=== PATIENT | female | born 1970 | race Caucasian/White ===

== ENCOUNTER 2019-12-03 10:00 | Outpatient (CLI) | payer MEDICAID, SELFPAY ==
--- NOTE | 2019-12-03 10:08 | CT_ITS ---
WS: [id number] CT NECK WITH CONTRAST HISTORY: CERVICALGIA, ACUTE RECURRENT TONSILLITIS TECHNIQUE: Contiguous 5 mm axial images are performed through the neck with intravenous contrast. Sag ittal and coronal reformats are also submitted. All CT scans at [facility] use at least o ne of these dose optimization techniques: automated exposure control; mA and/or kV adjustment per pat ient size (includes targeted exams where dose is matched to clinical indication); or iterative recons truction. CONTRAST: CONTRAST: Omnipaque 300; 95 mL IV. DLP: 2362.92 mGycm COMPARISON: 05/07/2019 BB is placed over the LEFT neck at the region of concern. Marker corresponds to small adjacent lymph nodes which are mildly hyperemic. These lymph nodes measure 4 mm in maximum diameter but they are sli ghtly hyperemic. Hyperemia is new since 05/07/2019 but there is no increase in size. Nasopharynx, oropharynx, hypopharynx and larynx are unremarkable. No soft tissue masses or abnormal e nhancement. Torus tubarius and fossa of Rosenmuller and parapharyngeal fat are normal. No significant lymphadenopathy is identified. Thyroid gland and salivary glands are normally enhancing with no masses. No osseous abnormalities. Visualized portions of the skull base demonstrate no abnormalities. Orbits and globes are within norm al limits. No soft tissue masses. Visualized paranasal sinuses and mastoid air cells are normal. Lung apices are clear. There is a stable 10 mm RIGHT paratracheal lymph node. CT/CT neck w con* [id number] IMPRESSION: 1. No neck mass or significant adenopathy. 2. Mildly hyperemic lymph nodes lateral to the LEFT submandibular gland are no rmal in size. Mild hyperemia and may represent some mild inflammation. No adeno trae.
[2019-12-03] MEDS: iohexol 300 mg/mL 100 mL Btl IV (10:47)
== END 2019-12-03 10:01 | disposition home or self-care (01) ==
LOC: RADWPI 10:04
PROVIDERS: Family Provider Nurse Practitioner Family; PCP Nurse Practitioner Family; Visit Provider Specialist
DX: M54.2 Cervicalgia (principal); J03.81 Acute recurrent tonsillitis due to other specified organisms; R68.89 Other general symptoms and signs
CPT/HCPCS: 70491; Q9967

== ENCOUNTER → 2019-12-25 09:50 | Outpatient (BNVA) | payer MEDICAID, SELFPAY | PROVIDERS: Family Provider Nurse Practitioner Family; PCP Nurse Practitioner Family; Visit Provider Specialist | DX: G43.711 Chronic migraine without aura, intractable, with status migrainosus (principal); Q87.40 Marfan syndrome, unspecified | CPT/HCPCS: 64615; 96372; J0585; J1885 ==

== ENCOUNTER 2020-01-12 09:02 | Outpatient (CLI) | payer MEDICAID, SELFPAY | END 2020-01-12 09:03 | disposition home or self-care (01) | LOC: RAD 01-13 16:05 | PROVIDERS: Family Provider Nurse Practitioner Family; PCP Nurse Practitioner Family; Visit Provider Specialist | DX: M79.7 Fibromyalgia; Q87.40 Marfan syndrome, unspecified | CPT/HCPCS: 20552; 99214 ==

== ENCOUNTER 2020-02-06 07:30 | Outpatient (CLI) | payer MEDICAID, SELFPAY ==
--- NOTE | 2020-02-06 08:00 | MR_ITS ---
WS: [id number] MRI LUMBAR SPINE NONCONTRAST HISTORY: back pain COMPARISON: None available. TECHNIQUE: Sagittal and axial multisequence imaging is submitted. Mild encroachment upon the ventral thecal sac by osteophytes at C4-5 and C5-6. Normal lumbar alignment with no compression fractures or marrow edema. Disc spaces and vertebral body heights are well-preserved. Conus terminates normally at mid L1. L1-L2: Bilateral nerve root sleeve diverticulum. No stenosis. L2-L3: Bilateral nerve root sleeve diverticulum without stenosis. L3-L4: Very mild annular disc bulging with ligamentum flavum hypertrophy and facet arthritis. No sign ificant stenosis. L4-L5: Mild annular disc bulging and ligamentum flavum hypertrophy. No significant stenosis. L5-S1: Normal. Tarlov cyst posterior to the sacrum. Additional nerve root sleeve diverticula bilaterally at T11-12 a nd T12-L1. MR/MR lumbar spine wo con* [id number] IMPRESSION: 1. No lumbar spine stenosis. 2. Mild degenerative disc disease and ligamentum flavum hypertrophy at L3-4 an d L4-5.
--- NOTE | 2020-02-06 08:45 | USCV_ITS ---
Ivy Pemberton Age: 49 Gender: F : 1970 Exam Date: 02/06/2020 08:57 Ordering Phys: Alyssa Mcintosh MD Technologist: Tiffany Lopez Exam Location: [facility] [place] Indication: Abdominal pain HISTORY: Diameter (cm) AP x Transverse x Length Velocity (cm/s) Waveform Prox Aorta: 2.03 x 2.10 x 107.70 Mid Aorta: 1.69 x 1.63 x 91.10 Distal Aorta: 1.41 x 1.57 x 88.70 Right Iliac Prox: 1.01 x 1.06 x 80.60 Left Iliac Prox: 0.94 x 1.11 x 99.30 Stent Prox Landing x x Aneurysmal Sac Max x x Lt Lat Sac Dim Rt Lat Sac Dim Stent Dist Landing x x Right Iliac Stent x x Left Iliac Stent x x Right Renal Art Left Renal Art FINDINGS: CONCLUSIONS Minimal arteriovascular disease within the abdominal aorta. No evidence of abdominal aortic or bilateral iliac aneurysm. Hiro Chavis MD (Electronically Signed) Final Date: 06 February 2020 09:41 S
== END 2020-02-06 07:31 | disposition home or self-care (01) ==
LOC: RADSHAW 07:31
PROVIDERS: Family Provider Nurse Practitioner Family; PCP Nurse Practitioner Family; Visit Provider Specialist
DX: M54.9 Dorsalgia, unspecified (principal); R10.9 Unspecified abdominal pain; M51.36 Other intervertebral disc degeneration, lumbar region
CPT/HCPCS: 72148; 76706

== ENCOUNTER → 2020-02-26 09:59 | Outpatient (BNVA) | payer MEDICAID, SELFPAY | PROVIDERS: Family Provider Nurse Practitioner Family; PCP Nurse Practitioner Family; Visit Provider Specialist | DX: M25.512 Pain in left shoulder (principal) | CPT/HCPCS: 73030 ==

== ENCOUNTER 2020-03-08 08:45 | Outpatient (CLI) | payer MEDICAID, SELFPAY ==
--- NOTE | 2020-03-08 08:45 | MR_ITS ---
WS: [id number] MRI LEFT SHOULDER HISTORY: shoulder pain COMPARISON: Shoulder radiograph 02/26/2020. TECHNIQUE: Multiplanar sequences of the shoulder joint are submitted. Mild hypertrophic changes at the AC joint. There is fluid along the AC ligament with small osteophyte s. Very tiny amount of fluid in the subdeltoid bursa. Slight downward sloping of the acromion. Downwa rd sloping is causing a very slight narrowing of the acromial humeral distance. Very small insertion site tear of the infraspinatus tendon. Tear measures 3 mm in diameter. Otherwise tendons of the rotator cuff are intact. No significant tendinopathy. No muscle atrophy or fatty repl acement. The humeral head is very slightly high riding. No os acromion. Normal position of the biceps tendon. Increased signal extending into the anterior superior labrum. Abnormal signal is irregular and suspic ious for an anterior superior labral tear. MR/MR shoulder LT wo con* [id number] IMPRESSION: 1. Very small insertion site tear infraspinatus tendon. 2. Mild AC joint arthritis. 3. Anterior superior labral tear.
== END 2020-03-08 08:46 | disposition home or self-care (01) ==
LOC: RADSHAW 08:50
PROVIDERS: Family Provider Nurse Practitioner Family; PCP Nurse Practitioner Family; Visit Provider Specialist
DX: S46.912A Strain of unspecified muscle, fascia and tendon at shoulder and upper arm level, left arm, initial encounter (principal); S43.432A Superior glenoid labrum lesion of left shoulder, initial encounter; X58.XXXA Exposure to other specified factors, initial encounter; M13.812 Other specified arthritis, left shoulder
CPT/HCPCS: 73221

== ENCOUNTER → 2020-03-18 10:16 | Outpatient (BNVA) | payer MEDICAID, SELFPAY | PROVIDERS: Family Provider Nurse Practitioner Family; PCP Nurse Practitioner Family; Visit Provider Specialist | DX: G43.711 Chronic migraine without aura, intractable, with status migrainosus (principal); M79.7 Fibromyalgia | CPT/HCPCS: 64615; 99213; J0585 ==

== ENCOUNTER → 2020-06-17 09:06 | Outpatient (BNVA) | payer MEDICAID, SELFPAY | PROVIDERS: Family Provider Nurse Practitioner Family; PCP Nurse Practitioner Family; Visit Provider Specialist | DX: G43.711 Chronic migraine without aura, intractable, with status migrainosus (principal); S06.0X9A Concussion with loss of consciousness of unspecified duration, initial encounter; Q87.40 Marfan syndrome, unspecified | CPT/HCPCS: 64615; 99213; J0585 ==

== ENCOUNTER → 2020-06-23 13:39 | Outpatient (BNVA) | payer MEDICAID, SELFPAY | PROVIDERS: Family Provider Nurse Practitioner Family; PCP Nurse Practitioner Family; Visit Provider Specialist | DX: M25.562 Pain in left knee (principal); M17.11 Unilateral primary osteoarthritis, right knee; M47.812 Spondylosis without myelopathy or radiculopathy, cervical region | CPT/HCPCS: 73560; 73565 ==

== ENCOUNTER 2020-06-24 14:14 | Outpatient (CLI) | payer MEDICAID, SELFPAY ==
--- NOTE | 2020-06-24 14:49 | XR_ITS ---
WS: [id number] EXAM: XR cervical spine 4-5V [id number] DATE OF EXAMINATION: 06/24/2020, 1500 hours COMPARISON: Cervical spine examination from 11/21/2018 HISTORY: 49 years old with migraine headaches. FINDINGS: Cervical vertebral bodies are of normal height. The pre dens space and prevertebral soft tissue plane are normal. There is reversal of cervical lordosis. Advanced degenerative spondylosis changes are se en C4-5, C5-6 and C6-7 levels. Flexion-extension views show no evidence of instability. Slight facet arthritis changes most prominent C6-7 level. C1-C2 alignment is normal. No fracture or subluxation ma lalignment is noted. No soft tissue abnormality is demonstrated. XR/XR cervical spine 4-5V [id number] IMPRESSION: Findings of arthritis as described. No acute bony abnormality. No instability w ith flexion and extension.
== END 2020-06-24 14:15 | disposition home or self-care (01) ==
LOC: RADWPI 14:16
PROVIDERS: PCP Nurse Practitioner Family; Visit Provider Specialist
DX: G43.711 Chronic migraine without aura, intractable, with status migrainosus (principal); M47.812 Spondylosis without myelopathy or radiculopathy, cervical region
CPT/HCPCS: 72050

== ENCOUNTER 2020-07-06 10:37 | Outpatient (CLI) | payer MEDICAID, SELFPAY ==
--- NOTE | 2020-07-06 11:00 | MR_ITS ---
WS: [id number] MRI LEFT KNEE HISTORY: M25.562 Pain in left knee COMPARISON: 10/16/2016 Anterior cruciate ligament: Intact. Posterior cruciate ligament: Slight buckling but the ligament is intact. Medial collateral ligament: Intact. Posterior lateral corner structures: Intact. Medial menisci: Intact. Normal signal, size and shape. Lateral meniscus: Intact. Normal signal, size and shape. Extensor mechanism: Distal quadriceps tendon and patellar tendons are intact. Fluid and soft tissue: There is a small amount of fluid in the suprapatellar bursa. No significant nano int effusion. No Gómez's cyst. Osseous and articular structures: Patellofemoral compartment: Bilateral chondromalacia patella. Similar to the prior examination with n o progression. No marrow edema. Medial compartment: Mild narrowing and loss of the joint space. No significant cartilage loss. Lateral compartment: Mild narrowing of the lateral compartment. Small amount of superficial irregular ity involving the cartilage on both sides of the joint space. No underlying marrow edema. Similar to the prior study. MR/MR knee LT wo con* [id number] IMPRESSION: 1. Chondromalacia patella similar to the prior study. 2. No meniscal tears. 3. No marrow edema. 4. Mild chondromalacia lateral compartment.
== END 2020-07-06 10:38 | disposition home or self-care (01) ==
LOC: RADSHAW 10:40
PROVIDERS: PCP Nurse Practitioner Family; Visit Provider Specialist
DX: M25.562 Pain in left knee (principal); M22.42 Chondromalacia patellae, left knee
CPT/HCPCS: 73721

== ENCOUNTER → 2020-07-13 13:58 | Outpatient (BNVA) | payer MEDICAID, SELFPAY | PROVIDERS: PCP Nurse Practitioner Family; Visit Provider Podiatrist Foot & Ankle Surgery | DX: M79.672 Pain in left foot (principal) | CPT/HCPCS: 73630 ==

== ENCOUNTER 2020-07-27 15:09 | Outpatient (CLI) | payer MEDICAID, SELFPAY ==
--- NOTE | 2020-07-27 16:00 | MR_ITS ---
WS: [id number] MRI LEFT ANKLE NONCONTRAST TECHNIQUE: Sagittal proton density, sagittal STIR, axial proton density, axial T1, axial T2 fat sat, coronal proton density, coronal proton density fat sat, coronal T2 fat sat. CLINICAL INFORMATION: left ankle injury COMPARISON: None. FINDINGS: Normal anatomic alignment. Ankle mortise is normal in appearance. No acute fractures. Normal medial a nd lateral malleolus. Normal talar dome. Normal calcaneus. Palpable marker over the lateral aspect of the hindfoot. Normal underlying soft tissues. Palpable mar ker over the peroneal tendons which appear normal. Normal peroneal longus and brevis. Distal Achilles is normal in appearance. Normal navicular. Normal tarsal bones. Proximal metatarsals are normal in appearance. Normal plantar fascia and aponeurosis. Extensor and flexor compartment tend ons are normal in appearance. MR/MR ankle LT wo con* [id number] IMPRESSION: 1. Normal anatomic alignment. No acute fractures. 2. Normal ankle mortise. Normal medial and lateral malleolus. 3. Marker overlying the peroneal tendons appear normal. Normal peroneal longus and brevis. 4. Normal extensor and flexor compartment tendons. 5. No acute ankle findings.
== END 2020-07-27 15:10 | disposition home or self-care (01) ==
LOC: RADSHAW 15:14
PROVIDERS: PCP Nurse Practitioner Family; Visit Provider Podiatrist Foot & Ankle Surgery
DX: S99.912A Unspecified injury of left ankle, initial encounter (principal); X58.XXXA Exposure to other specified factors, initial encounter
CPT/HCPCS: 73721

== ENCOUNTER → 2020-09-09 09:28 | Outpatient (BNVA) | payer MEDICAID, SELFPAY | PROVIDERS: PCP Nurse Practitioner Family; Visit Provider Specialist | DX: G43.711 Chronic migraine without aura, intractable, with status migrainosus (principal); G24.3 Spasmodic torticollis; Q87.40 Marfan syndrome, unspecified; M47.812 Spondylosis without myelopathy or radiculopathy, cervical region | CPT/HCPCS: 64615; 99213; J0585 ==

== ENCOUNTER → 2020-10-07 09:04 | Outpatient (BNVA) | payer MEDICAID, SELFPAY | PROVIDERS: PCP Nurse Practitioner Family; Visit Provider Podiatrist Foot & Ankle Surgery | DX: M79.672 Pain in left foot (principal) | CPT/HCPCS: 73630 ==

== ENCOUNTER 2020-10-20 13:09 | Outpatient (CLI) | payer MEDICAID, SELFPAY ==
--- NOTE | 2020-10-20 13:24 | MR_ITS ---
WS: [id number] MRI BRAIN WITH HIGH-RESOLUTION IMAGING THROUGH THE INTERNAL AUDITORY CANALS WITHOUT AND WITH CONTRAST HISTORY: DIZZINESS AND GIDDINESS COMPARISON: 08/21/2019 TECHNIQUE: Multiplanar, multisequence imaging is performed through the brain. Additional 3 mm imaging performed in multiple planes through the internal auditory canal. Postcontrast imaging with 16 ml's of Prohance. No acute intracranial hemorrhage, midline shift, edema or mass effect. New area of increased T2 and FLAIR signal adjacent to the corpus callosum of the RIGHT splenium. This was not present on the prior study. Otherwise no signal abnormalities. No significant volume loss or atrophy. Cerebellopontine angles are negative. Ventricles and extra-axial spaces are normal. No inferior displacement of cerebellar tonsils. Clivus and pituitary gland are normal. Internal and external auditory canals: Unremarkable. Cranial nerves VII and VIII complexes: Unremarkable. No enhancement or mass. Cerebellopontine angles: Normal. Paranasal sinuses: Normal. Mastoid air cells: Normal. Calvarium and scalp: Normal. Visualized [place] and dural venous sinuses demonstrate no abnormality. MR/MR iac's wo/w con* [id number] IMPRESSION: 1. No abnormality at the cerebellopontine angles or along the internal medicine hospitalist y canals. 2. New focal area of increased signal adjacent to the splenium of the RIGHT co rpus callosum. Differential includes microvascular ischemic disease and demyeli nating disease. New since the prior study with no enhancement.
== END 2020-10-20 13:10 | disposition home or self-care (01) ==
LOC: RADSHAW 13:13
PROVIDERS: PCP Nurse Practitioner Family; Visit Provider Specialist
DX: R42 Dizziness and giddiness (principal); I67.82 Cerebral ischemia
CPT/HCPCS: 70553; A9579

== ENCOUNTER → 2020-12-02 09:27 | Outpatient (BNVA) | payer MEDICAID, SELFPAY | PROVIDERS: PCP Nurse Practitioner Family; Visit Provider Specialist | DX: G43.711 Chronic migraine without aura, intractable, with status migrainosus (principal); R93.0 Abnormal findings on diagnostic imaging of skull and head, not elsewhere classified; G37.9 Demyelinating disease of central nervous system, unspecified; M79.7 Fibromyalgia; Q87.40 Marfan syndrome, unspecified; G24.3 Spasmodic torticollis | CPT/HCPCS: 64615; 99214; J0585 ==

== ENCOUNTER → 2020-12-28 10:08 | Outpatient (BNVA) | payer MEDICAID, SELFPAY | PROVIDERS: PCP Nurse Practitioner Family; Referring Provider Nurse Practitioner Family; Visit Provider Specialist | DX: R20.0 Anesthesia of skin (principal); R20.2 Paresthesia of skin; M47.892 Other spondylosis, cervical region | CPT/HCPCS: 95910 ==

== ENCOUNTER 2021-01-12 12:20 | Outpatient (CLI) | payer MEDICAID, SELFPAY ==
--- NOTE | 2021-01-12 12:48 | MR_ITS ---
WS: [id number] MRI HEAD WITH CONTRAST TECHNIQUE: Sagittal T1, T2 axial, T2 axial FLAIR, axial susceptibility weighted imaging, axial diffus ion weighted images, and coronal T2 images were obtained. Pre and post-T1 axial and post T1 coronal i mages. ADC and FSPGR images. CLINICAL INFORMATION: R93.0 - Abnormal findings on diagnostic imaging of skull and head, not elsewher e classified COMPARISON: MRI October 20, 2020 FINDINGS: No evidence of restricted diffusion to suggest acute ischemia. Ventricular system and basal cisterns are patent. Previously described T2 hyperintense lesion along the splenium of the right corpus callos um has resolved in the interim. No new lesions. Corpus callosum is normal in appearance. Normal posterior fossa. Normal vascular flow voids at the skull base. No extra-axial fluid collection s. No evidence of mass or mass effect. Paranasal sinuses and mastoid air cells well aerated. No hemos iderin on susceptibly weighted images. Normal optic chiasm and pituitary infundibulum. Temporal lobes and hippocampal formations are normal in appearance. No abnormal gadolinium enhancement. Normal dural venous sinuses. MR/MR head wo/w con [id number] IMPRESSION: 1. No evidence of restricted diffusion to suggest acute ischemia. 2. Previously described lesion along the right splenium corpus callosum has re solved in the interim. No new lesions. 3. No abnormal gadolinium enhancement. 4. Normal corpus callosum. 5. No other suspicious findings.
[2021-01-12] MEDS: gadobenate dimeglumine 20 mL vial 16 ML IV (13:40)
== END 2021-01-12 12:21 | disposition home or self-care (01) ==
LOC: RADSHAW 12:21
PROVIDERS: PCP Nurse Practitioner Family; Visit Provider Specialist
DX: R93.0 Abnormal findings on diagnostic imaging of skull and head, not elsewhere classified (principal)
CPT/HCPCS: 70553; A9577

== ENCOUNTER → 2021-01-31 14:32 | Outpatient (BNVA) | payer MEDICAID, SELFPAY | PROVIDERS: PCP Nurse Practitioner Family; Visit Provider Podiatrist Foot & Ankle Surgery | DX: M79.672 Pain in left foot (principal); M79.673 Pain in unspecified foot | CPT/HCPCS: 73630 ==

== ENCOUNTER 2021-02-17 07:47 | Outpatient (CLI) | payer MEDICAID, SELFPAY ==
--- NOTE | 2021-02-17 07:50 | MR_ITS ---
WS: [id number] MRI LEFT FOOT without CONTRAST. COMPARISON: Radiograph 01/31/2021 Multiplanar, multisequence imaging is performed without contrast. History: Trauma. Possible occult fracture. No marrow edema to suggest an acute fracture. No significant amount of soft tissue edema. There is a very small focal area of increased T2 signal in the soft tissues lateral to the fifth metatarsal. No hemorrhage. No significant degenerative change. Normal alignment at the tarsometatarsal junction. No increase fluid in the extensor or flexion tendons. MR/MR foot LT wo con* [id number] IMPRESSION: 1. No LEFT foot fracture or marrow edema. 2. Very small area of increased signal in the soft tissues lateral to the prox imal fifth metatarsal may be the area of soft tissue injury.
== END 2021-02-17 07:48 | disposition home or self-care (01) ==
LOC: RADSHAW 07:49
PROVIDERS: PCP Nurse Practitioner Family; Visit Provider Podiatrist Foot & Ankle Surgery
DX: S99.922A Unspecified injury of left foot, initial encounter (principal); X58.XXXA Exposure to other specified factors, initial encounter
CPT/HCPCS: 73718

== ENCOUNTER → 2021-03-03 10:03 | Outpatient (BNVA) | payer MEDICAID, SELFPAY | PROVIDERS: PCP Nurse Practitioner Family; Visit Provider Specialist | DX: G43.711 Chronic migraine without aura, intractable, with status migrainosus (principal); G37.9 Demyelinating disease of central nervous system, unspecified; M79.7 Fibromyalgia; Q87.40 Marfan syndrome, unspecified; G24.3 Spasmodic torticollis | CPT/HCPCS: 64615; 99212; J0585 ==

== ENCOUNTER → 2021-04-28 09:25 | Outpatient (BNVA) | payer MEDICAID, SELFPAY | PROVIDERS: PCP Nurse Practitioner Family; Visit Provider Specialist | DX: M25.569 Pain in unspecified knee (principal) | CPT/HCPCS: 73560; 73565 ==

== ENCOUNTER → 2021-05-26 10:30 | Outpatient (BNVA) | payer MEDICAID, SELFPAY | PROVIDERS: Visit Provider Specialist | DX: G43.711 Chronic migraine without aura, intractable, with status migrainosus (principal); Q87.40 Marfan syndrome, unspecified; M47.812 Spondylosis without myelopathy or radiculopathy, cervical region; G37.9 Demyelinating disease of central nervous system, unspecified | CPT/HCPCS: 64615; 99214; J0585 ==

== ENCOUNTER → 2021-06-08 09:35 | Outpatient (BNVA) | payer MEDICAID, SELFPAY | PROVIDERS: Visit Provider Specialist | DX: M75.82 Other shoulder lesions, left shoulder (principal); M19.012 Primary osteoarthritis, left shoulder | CPT/HCPCS: 73030 ==

== ENCOUNTER 2021-06-14 13:00 | Outpatient (CLI) | payer MEDICAID, SELFPAY ==
--- NOTE | 2021-06-14 13:06 | MR_ITS ---
WS: [id number] MRI CERVICAL SPINE NONCONTRAST HISTORY: MARFAN'S SYNDROME COMPARISON: 02/14/2017 Technique: Multiplanar, multisequence noncontrast imaging of the cervical spine. Very slight straightening of the upper cervical vertebrae. No acute fractures or marrow edema. 3 mm r etrolisthesis of C4 and C5. Disc spaces are narrowed and desiccated from C3-4 to C6-7. No inferior displacement of cerebellar ton sils. Signal within the cord is normal. No syrinx. Craniocervical junction, C1 and C2 relationship, odontoid process and soft tissues are normal. C2-C3: Normal. C3-C4: Mild annular disc bulge with a central disc protrusion. No high-grade stenosis. C4-C5: Diffuse osteophytic ridging and annular disc bulging with a central protrusion. Mild deformity of the ventral cervical cord. Mild central stenosis. C5-C6: Diffuse osteophytic ridging and a central disc protrusion. Mild facet joint arthritis. Mild ce ntral stenosis. C6-C7: Mild annular disc bulging and osteophytic ridging. Greater osteophyte burden in the LEFT dalia en with mild LEFT foraminal narrowing and mild LEFT facet arthritis. C7-T1: No stenosis. Paraspinal soft tissue are normal. MR/MR cervical spin wo con* [id number] IMPRESSION: 1. No high-grade central or foraminal stenosis. 2. Mild central stenosis with a central disc protrusions at C4-5 and C5-6. 3. Osteophytic ridging with mild LEFT foraminal stenosis at C6-7. Similar to horace hernandez prior study. 4. Advanced degenerative disc disease and osteophytosis, most significant at C 4-5 and C5-6.
== END 2021-06-14 13:01 | disposition home or self-care (01) ==
PROVIDERS: Visit Provider Specialist
DX: Q87.40 Marfan syndrome, unspecified (principal); M47.812 Spondylosis without myelopathy or radiculopathy, cervical region; M50.221 Other cervical disc displacement at C4-C5 level; M25.78 Osteophyte, vertebrae
CPT/HCPCS: 72141

== ENCOUNTER → 2021-06-24 09:41 | Outpatient (BNVA) | payer MEDICAID, SELFPAY | PROVIDERS: PCP Nurse Practitioner Family; Referring Provider Specialist; Visit Provider Anesthesiology Pain Medicine | DX: G89.29 Other chronic pain (principal); M47.812 Spondylosis without myelopathy or radiculopathy, cervical region; M48.02 Spinal stenosis, cervical region; M54.12 Radiculopathy, cervical region; M17.12 Unilateral primary osteoarthritis, left knee; Q87.40 Marfan syndrome, unspecified; Z79.891 Long term (current) use of opiate analgesic | CPT/HCPCS: 99205 ==

== ENCOUNTER → 2021-07-01 12:58 | Outpatient (BNVA) | payer MEDICAID, SELFPAY | PROVIDERS: PCP Nurse Practitioner Family; Visit Provider Anesthesiology Pain Medicine | DX: M54.12 Radiculopathy, cervical region (principal) | CPT/HCPCS: 62321; J1100 ==

== ENCOUNTER → 2021-07-21 09:07 | Outpatient (BNVA) | payer MEDICAID, SELFPAY | PROVIDERS: PCP Nurse Practitioner Family; Visit Provider Anesthesiology Pain Medicine | DX: M47.812 Spondylosis without myelopathy or radiculopathy, cervical region (principal); M48.02 Spinal stenosis, cervical region; M54.12 Radiculopathy, cervical region; Q87.40 Marfan syndrome, unspecified; M17.12 Unilateral primary osteoarthritis, left knee; M79.601 Pain in right arm; M79.602 Pain in left arm; R51.9 Headache, unspecified | CPT/HCPCS: 99214 ==

== ENCOUNTER → 2021-08-01 14:18 | Outpatient (BNVA) | payer MEDICAID, SELFPAY | PROVIDERS: PCP Nurse Practitioner Family; Visit Provider Anesthesiology Pain Medicine | DX: M47.812 Spondylosis without myelopathy or radiculopathy, cervical region (principal) | CPT/HCPCS: 64490; 64491; 64492; J3490 ==

== ENCOUNTER → 2021-08-15 10:27 | Outpatient (BNVA) | payer MEDICAID, SELFPAY | PROVIDERS: PCP Nurse Practitioner Family; Visit Provider Anesthesiology Pain Medicine | DX: M47.812 Spondylosis without myelopathy or radiculopathy, cervical region (principal); M48.02 Spinal stenosis, cervical region; M54.12 Radiculopathy, cervical region; M53.2X1 Spinal instabilities, occipito-atlanto-axial region; Q87.40 Marfan syndrome, unspecified; M17.12 Unilateral primary osteoarthritis, left knee; M79.601 Pain in right arm; M79.602 Pain in left arm; G43.711 Chronic migraine without aura, intractable, with status migrainosus | CPT/HCPCS: 99214 ==

== ENCOUNTER → 2021-08-31 13:56 | Outpatient (BNVA) | payer MEDICAID, SELFPAY | PROVIDERS: PCP Nurse Practitioner Family; Visit Provider Anesthesiology Pain Medicine | DX: Z01.812 Encounter for preprocedural laboratory examination (principal); E11.9 Type 2 diabetes mellitus without complications; M54.16 Radiculopathy, lumbar region | CPT/HCPCS: 36416; 64483; 64484; 82962; J1100; J3490 ==

== ENCOUNTER → 2021-10-04 12:50 | Outpatient (BNVA) | payer MEDICAID, SELFPAY | PROVIDERS: PCP Nurse Practitioner Family; Visit Provider Anesthesiology Pain Medicine | DX: Z01.812 Encounter for preprocedural laboratory examination (principal); E11.9 Type 2 diabetes mellitus without complications; M54.16 Radiculopathy, lumbar region | CPT/HCPCS: 36416; 64483; 64484; 82962; J1100; J3490 ==

== ENCOUNTER 2021-10-14 14:22 | Outpatient (CLI) | payer OTHER, MEDICAID, SELFPAY | END 2021-10-14 14:23 | disposition home or self-care (01) | LOC: SPT 14:23 | PROVIDERS: PCP Nurse Practitioner Family; Visit Provider Podiatrist Foot & Ankle Surgery | DX: Z46.89 Encounter for fitting and adjustment of other specified devices (principal); T14.8XXA Other injury of unspecified body region, initial encounter; X58.XXXA Exposure to other specified factors, initial encounter | CPT/HCPCS: 97760; L4361 ==

== ENCOUNTER 2021-10-20 13:22 | Outpatient (CLI) | payer OTHER, SELFPAY ==
--- NOTE | 2021-10-20 13:29 | CT_ITS ---
WS: [id number] CT RIGHT FOOT, noncontrast. HISTORY: right foot injury Technique: All CT scans at [facility] use at least one of these dose optimization techniques: automated exposure control; mA and/or kV adjustment per patient size (includes targeted exams where dose is matched to clinical indication); or iterative reconstruction. DLP: 168.89 mGy.cm COMPARISON: RIGHT foot radiograph 10/12/2021 Nondisplaced intra-articular fracture through the plantar surface of the proximal first metatarsal. A dditional nondisplaced fractures through the proximal second, third and fourth metatarsals. These fra ctures involve the metaphyses but do not extend intra-articular. No definite fracture involving the p roximal fifth metatarsal. There is slight cortical irregularity involving the proximal fifth metatars al but no definite fracture. No significant widening of the Lisfranc joint but this would be better e valuated radiographically. Moderate amount of soft tissue edema around the metatarsals. Distal tibia and fibula are intact. Normal calcaneus and talus. No definite tarsal fractures are jessi lignment. CT/CT foot RT wo con* [id number] IMPRESSION: 1. Proximal first metatarsal intra-articular fracture without displacement. 2. Nondisplaced transverse fractures second, third and fourth proximal metatar sals with no intra-articular extension. No additional fractures are identified.
== END 2021-10-20 13:23 | disposition home or self-care (01) ==
LOC: RAD 13:24
PROVIDERS: PCP Nurse Practitioner Family; Visit Provider Podiatrist Foot & Ankle Surgery
DX: S92.324A Nondisplaced fracture of second metatarsal bone, right foot, initial encounter for closed fracture (principal); S92.334A Nondisplaced fracture of third metatarsal bone, right foot, initial encounter for closed fracture; S92.344A Nondisplaced fracture of fourth metatarsal bone, right foot, initial encounter for closed fracture; X58.XXXA Exposure to other specified factors, initial encounter
CPT/HCPCS: 73700

== ENCOUNTER → 2021-11-07 14:36 | Outpatient (BNVA) | payer OTHER, SELFPAY | PROVIDERS: PCP Nurse Practitioner Family; Visit Provider Podiatrist Foot & Ankle Surgery | DX: S99.921A Unspecified injury of right foot, initial encounter (principal); X58.XXXA Exposure to other specified factors, initial encounter | CPT/HCPCS: 73630 ==

== ENCOUNTER → 2021-11-14 15:07 | Outpatient (BNVA) | payer OTHER, SELFPAY | PROVIDERS: PCP Nurse Practitioner Family; Visit Provider Podiatrist Foot & Ankle Surgery | DX: S92.344D Nondisplaced fracture of fourth metatarsal bone, right foot, subsequent encounter for fracture with routine healing (principal); S92.334D Nondisplaced fracture of third metatarsal bone, right foot, subsequent encounter for fracture with routine healing; S92.324D Nondisplaced fracture of second metatarsal bone, right foot, subsequent encounter for fracture with routine healing; S92.314D Nondisplaced fracture of first metatarsal bone, right foot, subsequent encounter for fracture with routine healing; X58.XXXD Exposure to other specified factors, subsequent encounter | CPT/HCPCS: 73630 ==

== ENCOUNTER → 2021-12-01 09:59 | Outpatient (BNVA) | payer OTHER, SELFPAY | PROVIDERS: PCP Nurse Practitioner Family; Visit Provider Podiatrist Foot & Ankle Surgery | DX: S92.344D Nondisplaced fracture of fourth metatarsal bone, right foot, subsequent encounter for fracture with routine healing (principal); S92.334D Nondisplaced fracture of third metatarsal bone, right foot, subsequent encounter for fracture with routine healing; S92.324D Nondisplaced fracture of second metatarsal bone, right foot, subsequent encounter for fracture with routine healing; S92.314D Nondisplaced fracture of first metatarsal bone, right foot, subsequent encounter for fracture with routine healing; X58.XXXD Exposure to other specified factors, subsequent encounter | CPT/HCPCS: 73630 ==

== ENCOUNTER → 2021-12-15 14:09 | Outpatient (BNVA) | payer OTHER, SELFPAY | PROVIDERS: PCP Nurse Practitioner Family; Visit Provider Podiatrist Foot & Ankle Surgery | DX: S92.344D Nondisplaced fracture of fourth metatarsal bone, right foot, subsequent encounter for fracture with routine healing (principal); S92.314D Nondisplaced fracture of first metatarsal bone, right foot, subsequent encounter for fracture with routine healing; S92.324D Nondisplaced fracture of second metatarsal bone, right foot, subsequent encounter for fracture with routine healing; S92.334D Nondisplaced fracture of third metatarsal bone, right foot, subsequent encounter for fracture with routine healing; V89.2XXD Person injured in unspecified motor-vehicle accident, traffic, subsequent encounter | CPT/HCPCS: 73630 ==

== ENCOUNTER → 2022-01-05 13:08 | Outpatient (BNVA) | payer OTHER, SELFPAY | PROVIDERS: PCP Nurse Practitioner Family; Visit Provider Podiatrist Foot & Ankle Surgery | DX: S92.344D Nondisplaced fracture of fourth metatarsal bone, right foot, subsequent encounter for fracture with routine healing (principal); S92.334D Nondisplaced fracture of third metatarsal bone, right foot, subsequent encounter for fracture with routine healing; S92.324D Nondisplaced fracture of second metatarsal bone, right foot, subsequent encounter for fracture with routine healing; S92.314D Nondisplaced fracture of first metatarsal bone, right foot, subsequent encounter for fracture with routine healing; X58.XXXD Exposure to other specified factors, subsequent encounter | CPT/HCPCS: 73630 ==

== ENCOUNTER 2022-01-19 15:47 | Outpatient (CLI) | payer OTHER, SELFPAY ==
--- NOTE | 2022-01-19 16:00 | MR_ITS ---
WS: [id number] INDICATION: Metatarsal fracture TECHNIQUE: MRI of the RIGHT foot without gadolinium enhancement. Coronal PD coronal T2 fat sat axial T2 axial PD axial T1 and sagittal T1 sagittal STIR FINDINGS: Nondisplaced fractures involving the base of the 2nd 3rd and 4th metatarsals. Nondisplaced fracture through the head and neck of the 5th metatarsal. 5th metatarsal base is normal. Nondisplaced slightly comminuted fracture involving the base of the 1st metatarsal with intra-articular extension . Evidence of healing in the above-described fractures with only minimal residual edema. Degenerative edema involving the talus. Small amount of edema in the neck of the talus with slight co rtical irregularity likely represents additional nondisplaced healing fracture versus contusion. Achi lles enthesophyte. Distal Achilles is normal. Normal peroneal tendon sheath. Normal peroneal longus a nd brevis. MR/MR foot RT wo con* [id number] IMPRESSION: 1. Healing nondisplaced fractures involving the 1st through 4th metatarsals wi th minimal residual edema. Healing nondisplaced fracture involving the head and neck of the 5th metatarsal. 2. Additional suspected healing fracture or contusion involving the neck of th e talus with mild residual edema. Slight cortical irregularity in this area.
== END 2022-01-19 15:48 | disposition home or self-care (01) ==
LOC: RAD 15:50
PROVIDERS: PCP Nurse Practitioner Family; Visit Provider Podiatrist Foot & Ankle Surgery
DX: S92.314A Nondisplaced fracture of first metatarsal bone, right foot, initial encounter for closed fracture (principal); S92.324A Nondisplaced fracture of second metatarsal bone, right foot, initial encounter for closed fracture; S92.334A Nondisplaced fracture of third metatarsal bone, right foot, initial encounter for closed fracture; S92.344A Nondisplaced fracture of fourth metatarsal bone, right foot, initial encounter for closed fracture; V89.2XXA Person injured in unspecified motor-vehicle accident, traffic, initial encounter
CPT/HCPCS: 73718

== ENCOUNTER → 2022-01-31 09:31 | Outpatient (BNVA) | payer OTHER, SELFPAY | PROVIDERS: PCP Nurse Practitioner Family; Visit Provider Podiatrist Foot & Ankle Surgery | DX: S92.311D Displaced fracture of first metatarsal bone, right foot, subsequent encounter for fracture with routine healing (principal); S92.321D Displaced fracture of second metatarsal bone, right foot, subsequent encounter for fracture with routine healing; S92.331D Displaced fracture of third metatarsal bone, right foot, subsequent encounter for fracture with routine healing; S92.341D Displaced fracture of fourth metatarsal bone, right foot, subsequent encounter for fracture with routine healing; X58.XXXD Exposure to other specified factors, subsequent encounter | CPT/HCPCS: 73630 ==

== ENCOUNTER → 2022-02-23 10:09 | Outpatient (BNVA) | payer MEDICAID, SELFPAY | PROVIDERS: PCP Nurse Practitioner Family; Visit Provider Specialist | DX: Z71.89 Other specified counseling (principal); M75.82 Other shoulder lesions, left shoulder | CPT/HCPCS: 20610; J1100; J2795; J3301 ==

== ENCOUNTER → 2022-03-02 11:15 | Outpatient (BNVA) | payer MEDICAID, SELFPAY | PROVIDERS: PCP Nurse Practitioner Family; Visit Provider Specialist | DX: M17.12 Unilateral primary osteoarthritis, left knee (principal); Z71.89 Other specified counseling | CPT/HCPCS: 20610; J1100; J2795; J3301 ==

== ENCOUNTER → 2022-03-07 14:10 | Outpatient (BNVA) | payer MEDICAID, SELFPAY | PROVIDERS: PCP Nurse Practitioner Family; Visit Provider Podiatrist Foot & Ankle Surgery | DX: E11.42 Type 2 diabetes mellitus with diabetic polyneuropathy (principal); S92.344D Nondisplaced fracture of fourth metatarsal bone, right foot, subsequent encounter for fracture with routine healing; S92.334D Nondisplaced fracture of third metatarsal bone, right foot, subsequent encounter for fracture with routine healing; S92.324D Nondisplaced fracture of second metatarsal bone, right foot, subsequent encounter for fracture with routine healing; S92.314D Nondisplaced fracture of first metatarsal bone, right foot, subsequent encounter for fracture with routine healing; V89.2XXD Person injured in unspecified motor-vehicle accident, traffic, subsequent encounter | CPT/HCPCS: 73630; 99214 ==

== ENCOUNTER → 2022-04-13 10:45 | Outpatient (BNVA) | payer MEDICAID, SELFPAY | PROVIDERS: PCP Nurse Practitioner Family; Visit Provider Podiatrist Foot & Ankle Surgery | DX: S92.344D Nondisplaced fracture of fourth metatarsal bone, right foot, subsequent encounter for fracture with routine healing (principal); S92.334D Nondisplaced fracture of third metatarsal bone, right foot, subsequent encounter for fracture with routine healing; S92.324D Nondisplaced fracture of second metatarsal bone, right foot, subsequent encounter for fracture with routine healing; S92.314D Nondisplaced fracture of first metatarsal bone, right foot, subsequent encounter for fracture with routine healing; V89.2XXD Person injured in unspecified motor-vehicle accident, traffic, subsequent encounter; Z71.89 Other specified counseling; E11.42 Type 2 diabetes mellitus with diabetic polyneuropathy; M79.671 Pain in right foot | CPT/HCPCS: 73630; 99213; 99214 ==

== ENCOUNTER → 2022-05-30 13:06 | Outpatient (BNVA) | payer MEDICAID, SELFPAY | PROVIDERS: PCP Nurse Practitioner Family; Visit Provider Podiatrist Foot & Ankle Surgery | DX: E11.42 Type 2 diabetes mellitus with diabetic polyneuropathy (principal); M79.671 Pain in right foot; M79.672 Pain in left foot; Z71.89 Other specified counseling; M77.42 Metatarsalgia, left foot; M77.41 Metatarsalgia, right foot; S92.344D Nondisplaced fracture of fourth metatarsal bone, right foot, subsequent encounter for fracture with routine healing; S92.334D Nondisplaced fracture of third metatarsal bone, right foot, subsequent encounter for fracture with routine healing; S92.324D Nondisplaced fracture of second metatarsal bone, right foot, subsequent encounter for fracture with routine healing; S92.314D Nondisplaced fracture of first metatarsal bone, right foot, subsequent encounter for fracture with routine healing; V89.2XXD Person injured in unspecified motor-vehicle accident, traffic, subsequent encounter | CPT/HCPCS: 73630; 99214 ==

== ENCOUNTER → 2022-06-15 10:11 | Outpatient (BNVA) | payer MEDICAID, SELFPAY | PROVIDERS: PCP Nurse Practitioner Family; Visit Provider Specialist | DX: M17.12 Unilateral primary osteoarthritis, left knee (principal); Z71.89 Other specified counseling | CPT/HCPCS: 20610; J1100; J2795; J3301 ==

== ENCOUNTER → 2022-07-13 10:37 | Outpatient (BNVA) | payer MEDICAID, SELFPAY | PROVIDERS: PCP Nurse Practitioner Family; Visit Provider Specialist | DX: M75.82 Other shoulder lesions, left shoulder (principal); Z71.89 Other specified counseling | CPT/HCPCS: 20610; J1100; J2795; J3301 ==

== ENCOUNTER 2022-07-14 10:54 | Outpatient (CLI) | payer MEDICAID, SELFPAY ==
--- NOTE | 2022-07-14 11:00 | US_ITS ---
WS: [id number] INDICATION: Huitron's neuroma TECHNIQUE: Ultrasound soft tissue area of concern bilateral plantar feet. FINDINGS: Ultrasound soft tissue LEFT foot along the plantar surface. History of metatarsal fractures recently. Ultrasound bilateral plantar feet. LEFT: Solid hypoechoic lesions suspicious for Huitron's neuroma between the 3rd and 4th distal metatar sals near the MTP joint measuring 6.0 x 3.1 x 5.4 mm RIGHT: Solid hypoechoic lesion suspicious for Huitron's neuroma between the 4th and 5th distal metatar sals near the MTP joint measuring 4.4 x 4.2 x 4.6 mm. US/US soft tissue/extremity [id number] IMPRESSION: Suspected bilateral Huitron's neuromas described above.
== END 2022-07-14 10:55 | disposition home or self-care (01) ==
LOC: RAD 10:57
PROVIDERS: PCP Family Medicine; Visit Provider Podiatrist Foot & Ankle Surgery
DX: M79.671 Pain in right foot (principal); M79.672 Pain in left foot; G57.60 Lesion of plantar nerve, unspecified lower limb
CPT/HCPCS: 76882

== ENCOUNTER 2022-07-18 08:31 | Outpatient (CLI) | payer MEDICAID, SELFPAY ==
--- NOTE | 2022-07-18 08:46 | CT_ITS ---
WS: [id number] CT NECK TECHNIQUE: Contrast-enhanced CT of the neck with coronal and sagittal reformatted images. CLINICAL INFORMATION: OTALGIA,L EAR/TINNITUS,L EAR COMPARISON: CT neck 12/03/2019 and 05/07/2019 DLP: 209.[address] scans at [facility] use at least one of these dose optimization techniques: automated e xposure control; mA and/or kV adjustment per patient size (includes targeted exams where dose is matc hed to clinical indication); or iterative reconstruction. FINDINGS: Normal parotid glands. Normal submandibular glands. Normal posterior nasopharynx. Normal parapharynge al fat. No evidence of supraglottic or glottic mass. Normal vallecula and piriform sinuses. Normal abdul bglottic airway. A few tiny subcentimeter thyroid nodules RIGHT greater than LEFT. Lung apices are well aerated. Partially visualized mastoid air cells are well aerated. Partially visu alized paranasal sinuses are well aerated. Normal visualized posterior fossa. No cervical lymphadenop athy. Mild spondylitic changes cervical spine. CT/CT neck w con* [id number] IMPRESSION: 1. Normal salivary glands. 2. No cervical lymphadenopathy. 3. No evidence of supraglottic or glottic mass. 4. Visualized mastoid air cells are well aerated. Middle ears appear well aera jen. 5. A few tiny subcentimeter thyroid nodules. 6. No other suspicious findings.
[2022-07-18] MEDS: iohexol 350 mg/mL 100 mL Btl IV (09:10)
== END 2022-07-18 08:32 | disposition home or self-care (01) ==
LOC: RAD 08:32
PROVIDERS: PCP Family Medicine; Visit Provider Specialist
DX: H92.02 Otalgia, left ear (principal); H93.12 Tinnitus, left ear; E04.2 Nontoxic multinodular goiter
CPT/HCPCS: 70491

== ENCOUNTER → 2022-08-01 14:22 | Outpatient (BNVA) | payer MEDICAID, SELFPAY | PROVIDERS: PCP Family Medicine; Visit Provider Podiatrist Foot & Ankle Surgery | DX: E11.42 Type 2 diabetes mellitus with diabetic polyneuropathy (principal); Z71.89 Other specified counseling; G57.62 Lesion of plantar nerve, left lower limb; S90.31XA Contusion of right foot, initial encounter; V89.2XXA Person injured in unspecified motor-vehicle accident, traffic, initial encounter; Z79.84 Long term (current) use of oral hypoglycemic drugs | CPT/HCPCS: 64455; 73630; 99214; J1100; J3301; J3490 ==

== ENCOUNTER 2022-08-25 10:44 | Outpatient (CLI) | payer MEDICAID, SELFPAY ==
--- NOTE | 2022-08-25 11:15 | MR_ITS ---
WS: [id number] MRI LEFT KNEE HISTORY: pain COMPARISON: 07/06/2020 Anterior cruciate ligament: Intact. Posterior cruciate ligament: Intact. Medial collateral ligament: Intact. Posterior lateral corner structures: Intact. Medial menisci: Intact. Normal signal, size and shape. Lateral meniscus: Intact. Normal signal, size and shape. Extensor mechanism: Distal quadriceps tendon and patellar tendons are intact. Fluid and soft tissue: No joint effusion. No Gómez's cyst. Osseous and articular structures: Patellofemoral compartment: Mild patellofemoral joint space narrowing. Mild progressive loss of carti feliz and chondromalacia. Only slight progression since the prior study. No marrow edema or displaceme nt. Medial compartment: Minimal narrowing of the joint space. No cartilage abnormality. No marrow edema. Lateral compartment: Mild narrowing of the lateral compartment. Surface irregularity along the cartil age of the weightbearing surface femoral condyle and tibial plateau. Largest defect measures 3.6 mm a long the femoral condyle towards the intercondylar notch. MR/MR knee LT wo con* [id number] IMPRESSION: 1. No ACL or meniscal tear. 2. No marrow edema or fracture. 3. Mild patellar chondromalacia. Mild progression since the prior study. 4. Mild narrowing of the lateral compartment and chondromalacia.
== END 2022-08-25 10:45 | disposition home or self-care (01) ==
LOC: RAD 10:45
PROVIDERS: PCP Family Medicine; Visit Provider Specialist
DX: M17.12 Unilateral primary osteoarthritis, left knee (principal); M22.42 Chondromalacia patellae, left knee
CPT/HCPCS: 73721

== ENCOUNTER → 2022-09-04 12:33 | Outpatient (BNVA) | payer MEDICAID, SELFPAY | PROVIDERS: PCP Family Medicine; Visit Provider Podiatrist Foot & Ankle Surgery | DX: G57.63 Lesion of plantar nerve, bilateral lower limbs; E11.42 Type 2 diabetes mellitus with diabetic polyneuropathy; Z71.89 Other specified counseling; G57.60 Lesion of plantar nerve, unspecified lower limb; Z79.84 Long term (current) use of oral hypoglycemic drugs | CPT/HCPCS: 64455 ==

== ENCOUNTER → 2022-09-21 10:39 | Outpatient (BNVA) | payer MEDICAID, SELFPAY | PROVIDERS: PCP Family Medicine; Visit Provider Specialist | DX: M17.12 Unilateral primary osteoarthritis, left knee (principal) | CPT/HCPCS: 20610; J1100; J2795; J3301 ==

== ENCOUNTER → 2022-11-15 14:06 | Outpatient (BNVA) | payer MEDICAID, SELFPAY | PROVIDERS: PCP Family Medicine; Visit Provider Specialist | DX: M17.12 Unilateral primary osteoarthritis, left knee (principal) | CPT/HCPCS: 73560; 73565 ==

== ENCOUNTER 2022-11-15 15:07 | Outpatient (CLI) | payer MEDICAID, SELFPAY | END 2022-11-15 15:08 | disposition home or self-care (01) | LOC: SPT 15:08 | PROVIDERS: PCP Family Medicine; Visit Provider Specialist | DX: Z46.89 Encounter for fitting and adjustment of other specified devices (principal); M17.12 Unilateral primary osteoarthritis, left knee | CPT/HCPCS: 97760; 99213; L1812 ==

== ENCOUNTER → 2022-11-20 12:36 | Outpatient (BNVA) | payer MEDICAID, SELFPAY | PROVIDERS: PCP Family Medicine; Visit Provider Podiatrist Foot & Ankle Surgery | DX: E11.42 Type 2 diabetes mellitus with diabetic polyneuropathy (principal); Z71.89 Other specified counseling; G57.63 Lesion of plantar nerve, bilateral lower limbs; Z79.84 Long term (current) use of oral hypoglycemic drugs | CPT/HCPCS: 64455 ==

== ENCOUNTER → 2023-01-01 09:24 | Outpatient (BNVA) | payer MEDICAID, SELFPAY | PROVIDERS: PCP Family Medicine; Visit Provider Anesthesiology Pain Medicine | DX: M48.02 Spinal stenosis, cervical region (principal); M54.12 Radiculopathy, cervical region; M47.812 Spondylosis without myelopathy or radiculopathy, cervical region; M17.12 Unilateral primary osteoarthritis, left knee; Q87.40 Marfan syndrome, unspecified | CPT/HCPCS: 99214 ==

== ENCOUNTER → 2023-01-15 12:32 | Outpatient (BNVA) | payer MEDICAID, SELFPAY | PROVIDERS: PCP Family Medicine; Visit Provider Podiatrist Foot & Ankle Surgery | DX: E11.42 Type 2 diabetes mellitus with diabetic polyneuropathy (principal); M20.21 Hallux rigidus, right foot; G57.61 Lesion of plantar nerve, right lower limb; Z79.84 Long term (current) use of oral hypoglycemic drugs | CPT/HCPCS: 20600; 99213 ==

== ENCOUNTER → 2023-01-31 10:29 | Outpatient (BNVA) | payer MEDICAID, SELFPAY | PROVIDERS: PCP Family Medicine; Visit Provider Specialist | DX: R22.32 Localized swelling, mass and lump, left upper limb (principal); Q87.40 Marfan syndrome, unspecified | CPT/HCPCS: 73030; 99214 ==

== ENCOUNTER 2023-02-13 13:44 | Outpatient (CLI) | payer MEDICAID, SELFPAY ==
--- NOTE | 2023-02-13 13:45 | MR_ITS ---
WS: [id number] MRI LUMBAR SPINE NONCONTRAST HISTORY: Low back pain. Chronic and progressive. COMPARISON: 02/06/2020. TECHNIQUE: Sagittal and axial multisequence imaging is submitted. Cervical osteophytes at C4, C5 and C6 with mild encroachment upon the ventral thecal sac. Normal lumbar alignment with no compression fractures or marrow edema. Disc spaces and vertebral body heights are well-preserved. Conus terminates normally at L1. L1-L2: Normal. L2-L3: Normal. L3-L4: Mild annular disc bulging. L4-L5: Mild disc bulging. Very minimal encroachment upon the subarticular recess. No stenosis. L5-S1: Mild annular disc bulge. Very mild disc contact on the LEFT S1 nerve root. No high-grade steno sis. Paravertebral soft tissues are normal. Multiple nerve root sleeve diverticulum as a distally describe d. Tarlov cyst posterior to the sacrum. MR/MR lumbar spine wo con* [id number] IMPRESSION: 1. No significant central or foraminal stenosis. 2. Minimal encroachment upon the subarticular recesses at L4-5. 3. Very minimal disc contact on the LEFT S1 nerve root without displacement.
== END 2023-02-13 13:45 | disposition home or self-care (01) ==
LOC: RAD 13:46
PROVIDERS: PCP Family Medicine; Visit Provider Anesthesiology Pain Medicine
DX: M48.062 Spinal stenosis, lumbar region with neurogenic claudication (principal)
CPT/HCPCS: 72148

== ENCOUNTER → 2023-07-12 15:17 | Outpatient (BNVA) | payer MEDICAID, SELFPAY | PROVIDERS: PCP Family Medicine; Visit Provider Podiatrist Foot & Ankle Surgery | DX: E11.42 Type 2 diabetes mellitus with diabetic polyneuropathy; M20.21 Hallux rigidus, right foot; Z91.81 History of falling; R26.81 Unsteadiness on feet; Z79.84 Long term (current) use of oral hypoglycemic drugs | CPT/HCPCS: 99213 ==

== ENCOUNTER → 2023-09-04 08:50 | Outpatient (BNVA) | payer MEDICAID, SELFPAY | PROVIDERS: PCP Family Medicine; Visit Provider Otolaryngology | DX: R51.9 Headache, unspecified (principal); H92.02 Otalgia, left ear; M54.2 Cervicalgia | CPT/HCPCS: 99203; 99204 ==

== ENCOUNTER → 2023-09-19 11:03 | Outpatient (BNVA) | payer MEDICAID, SELFPAY | PROVIDERS: PCP Family Medicine; Referring Provider Physician Assistant; Visit Provider Nurse Practitioner | DX: M75.82 Other shoulder lesions, left shoulder; S42.22 2-part fracture of surgical neck of humerus; M19.012 Primary osteoarthritis, left shoulder; Q87.40 Marfan syndrome, unspecified; X58.XXXD Exposure to other specified factors, subsequent encounter | CPT/HCPCS: 73030; 99214 ==

== ENCOUNTER → 2023-10-09 08:58 | Outpatient (BNVA) | payer MEDICAID, SELFPAY | PROVIDERS: PCP Family Medicine; Visit Provider Podiatrist Foot & Ankle Surgery | DX: M20.21 Hallux rigidus, right foot; Z91.81 History of falling; R26.81 Unsteadiness on feet; E11.42 Type 2 diabetes mellitus with diabetic polyneuropathy; Z79.84 Long term (current) use of oral hypoglycemic drugs | CPT/HCPCS: 73630; 99213 ==

== ENCOUNTER → 2024-01-22 09:45 | Outpatient (BNVA) | payer MEDICAID, SELFPAY | PROVIDERS: PCP Family Medicine; Visit Provider Podiatrist Foot & Ankle Surgery | DX: M20.21 Hallux rigidus, right foot (principal); Z91.81 History of falling; R26.81 Unsteadiness on feet; E11.42 Type 2 diabetes mellitus with diabetic polyneuropathy; Z79.84 Long term (current) use of oral hypoglycemic drugs | CPT/HCPCS: 99213 ==

== ENCOUNTER → 2025-01-13 10:34 | Outpatient (BNVA) | payer MEDICAID, SELFPAY | PROVIDERS: PCP Family Medicine; Visit Provider Podiatrist Foot & Ankle Surgery | DX: M20.21 Hallux rigidus, right foot (principal); E11.42 Type 2 diabetes mellitus with diabetic polyneuropathy; Z79.84 Long term (current) use of oral hypoglycemic drugs | CPT/HCPCS: 99213 ==

== ENCOUNTER → 2025-04-13 10:45 | Outpatient (BNVA) | payer MEDICAID, SELFPAY | PROVIDERS: PCP Hospitalist; Visit Provider Podiatrist Foot & Ankle Surgery | DX: M79.671 Pain in right foot (principal); M79.672 Pain in left foot; M20.21 Hallux rigidus, right foot; E11.42 Type 2 diabetes mellitus with diabetic polyneuropathy; G57.63 Lesion of plantar nerve, bilateral lower limbs; Z79.84 Long term (current) use of oral hypoglycemic drugs | CPT/HCPCS: 99213 ==

== ENCOUNTER → 2025-06-17 09:52 | Outpatient (BNVA) | payer MEDICAID, SELFPAY | PROVIDERS: PCP Hospitalist; Visit Provider Podiatrist Foot & Ankle Surgery | DX: M20.21 Hallux rigidus, right foot (principal); E11.42 Type 2 diabetes mellitus with diabetic polyneuropathy; G57.63 Lesion of plantar nerve, bilateral lower limbs; Z79.84 Long term (current) use of oral hypoglycemic drugs | CPT/HCPCS: 99213 ==

== ENCOUNTER → 2025-09-15 10:50 | Outpatient (BNVA) | payer MEDICAID, SELFPAY | PROVIDERS: PCP Hospitalist; Visit Provider Podiatrist Foot & Ankle Surgery | DX: M20.21 Hallux rigidus, right foot (principal); E11.42 Type 2 diabetes mellitus with diabetic polyneuropathy; G57.63 Lesion of plantar nerve, bilateral lower limbs | CPT/HCPCS: 73630; 99214 ==